=== PATIENT | female | born 1995 | race Caucasian/White ===

== ENCOUNTER 2021-02-26 12:28 | Emergency (ER) | payer OTHER ==
[~2021-02-26 12:28] MED LIST: K-DUR20 MEQ PO; PRENATAL VITAMIN PO
[2021-02-26 13:40] LABS: BASOPHIL 0.6 % (0-2); EOSINOPHIL 2.3 % (0-5); HCT 39.5 % (37.0-47.0); HGB 13.1 g/dl (12.5-16.0); LYMPHOCYTE 34.6 % (15-48); MCH 29.8 pg (25.0-31.0); MCHC 33.2 g/dL (32.0-36.0); MONOCYTE 8.6 % (0-12); MPV 10.9 fL (6.0-9.5); NEUTROPHIL 53.6 % (41-80); NRBC 0; PLT 360 K/uL (150-400); RBC 4.39 M/uL (4.20-5.40); RDW 13.2 % (11.5-14.0); WBC 7.9 K/uL (4.0-10.5)
[2021-02-26 13:51] LABS: BILIRUBIN - TOTAL 0.6 mg/dL (0.2-1.0); BUN/CREAT RATIO (CALC) 9.6 RATIO; CREATININE 0.83 mg/dL (0.51-0.95); GLOBULIN (CALCULATION) 3.4 g/dL; POTASSIUM 4.1 mmol/L (3.5-5.1); TOTAL PROTEIN 7.4 g/dL (6.4-8.2)
[2021-02-27 09:48] LABS: FT4 (FREE T4) 0.8 ng/dL (0.76-1.46); MAGNESIUM 1.8 mg/dL (1.8-2.4)
== END 2021-02-26 15:50 | disposition home or self-care (01) ==
LOC: FER 12:28
PROVIDERS: Emergency Medicine; Family Medicine
DX: R07.89 Other chest pain (principal); I49.3 Ventricular premature depolarization; R11.0 Nausea; Z87.891 Personal history of nicotine dependence
CPT/HCPCS: 36415; 71045; 80053; 83735; 84439; 84443; 84484; 85025; 85379; 93005